=== PATIENT | male | born 1970 ===

== ENCOUNTER 2018-01-28 01:20 | Emergency (ER) | payer OTHER ==
[2018-01-28 01:21] VITALS: BMI 26.7
[2018-01-28 01:34] VITALS: RESP 18; TEMP 98.2
--- NOTE | 2018-01-28 02:42 | ED PDOC ---
Arrival/HPI - General Chief Complaint: Male Genitourinary Time Seen by Provider: 01/28/18 02:19 Historian: Patient - History of Present Illness Narrative History of Present Illness (Text): 01/28/18 02:38 Chau Martin is a 47 year old male who presents to the Emergency department complaining of rectal discomfort for the past 3 weeks. Patient reports he was told he has hemorrhoids and is scheduled for a colonoscopy. Patient denies any difficulty moving his bowels, fever, abdominal pain, rectal bleeding, rectal discharge, or any other complaints. Symptom Onset: Gradual Symptom Course: Unchanged Activities at Onset: Light Context: Home Past Medical History - Provider Review Nursing Documentation Reviewed: Yes - Infectious Disease Hx of Infectious Diseases: None - Tetanus Immunization Tetanus Immunization: Unknown - Cardiac Hx Cardiac Disorders: No Other/Comment: Father has HTN - Pulmonary Hx Respiratory Disorders: No - Neurological Hx Neurological Disorder: No - HEENT Hx HEENT Disorder: No - Renal Hx Renal Disorder: No - Endocrine/Metabolic Hx Endocrine Disorders: No - Hematological/Oncological Hx Blood Disorders: No Other/Comment: Brother had Colon CA - Integumentary Hx Dermatological Disorder: No - Musculoskeletal/Rheumatological Hx Musculoskeletal Disorders: No Hx Falls: No - Gastrointestinal Hx Gastrointestinal Disorders: No - Genitourinary/Gynecological Hx Genitourinary Disorders: No - Psychiatric Hx Psychophysiologic Disorder: No Hx Substance Use: No - Anesthesia Hx Anesthesia: No Family/Social History - Physician Review Nursing Documentation Reviewed: Yes Family/Social History: Unknown Family HX Smoking Status: Never Smoked Hx Alcohol Use: No Hx Substance Use: No Allergies/Home Meds Allergies/Adverse Reactions: Allergies No Known Allergies Allergy (Verified 01/28/18 01:35) Review of Systems - Physician Review All systems were reviewed & negative as marked: Yes - Review of Systems Constitutional: Normal. absent: Fevers Eyes: Normal ENT: Normal Respiratory: Normal. absent: SOB, Cough Cardiovascular: Normal. absent: Chest Pain Gastrointestinal: Normal. absent: Abdominal Pain, Diarrhea, Nausea, Vomiting Genitourinary Male: Other (+rectal discomfort). absent: Dysuria, Frequency, Hematuria, Urinary Output Changes Musculoskeletal: Normal. absent: Neck Pain Skin: Normal Neurological: Normal Endocrine: Normal Hemo/Lymphatic: Normal Psychiatric: Normal Physical Exam Vital Signs Reviewed: Yes Vital Signs Temp Pulse Resp BP Pulse Ox 01/28/18 02:55 62 18 112/79 98 01/28/18 01:33 98.2 F 75 18 135/92 H 100 Temperature: Afebrile Blood Pressure: Normal Pulse: Regular Respiratory Rate: Normal Appearance: Positive for: Well-Appearing, Non-Toxic, Comfortable Pain Distress: None Mental Status: Positive for: Alert and Oriented X 3 - Systems Exam Head: Present: Atraumatic, Normocephalic Pupils: Present: PERRL Extroacular Muscles: Present: EOMI Conjunctiva: Present: Normal Mouth: Present: Moist Mucous Membranes Neck: Present: Normal Range of Motion Respiratory/Chest: Present: Clear to Auscultation, Good Air Exchange. No: Respiratory Distress, Accessory Muscle Use Cardiovascular: Present: Regular Rate and Rhythm, Normal S1, S2. No: Murmurs Abdomen: No: Tenderness, Distention, Peritoneal Signs Rectal: Present: Normal Rectal Tone, Other (Guaiac negative, no perirectal swelling, no erythema). No: Fissures Back: Present: Normal Inspection Upper Extremity: Present: Normal Inspection. No: Cyanosis, Edema Lower Extremity: Present: Normal Inspection. No: Edema Neurological: Present: GCS=15, CN II-XII Intact, Speech Normal Skin: Present: Warm, Dry, Normal Color. No: Rashes Psychiatric: Present: Alert, Oriented x 3, Normal Insight, Normal Concentration Medical Decision Making ED Course and Treatment: 01/28/18 02:40 Impression: 47 year old male complaining of rectal discomfort/pressure for 3 months. Differential Diagnosis included but are not limited to: hemorrhoids Plan: -- Reassess and disposition Progress Notes: - Scribe Statement The provider has reviewed the documentation as recorded by the Chey Antoine Provider Scribe Attestation: All medical record entries made by the Scribe were at my direction and personally dictated by me. I have reviewed the chart and agree that the record accurately reflects my personal performance of the history, physical exam, medical decision making, and the department course for this patient. I have also personally directed, reviewed, and agree with the discharge instructions and disposition. Disposition/Present on Arrival - Present on Arrival Any Indicators Present on Arrival: No History of DVT/PE: No History of Uncontrolled Diabetes: No Urinary Catheter: No History of Decub. Ulcer: No History Surgical Site Infection Following: None - Disposition Have Diagnosis and Disposition been Completed?: Yes Diagnosis: Rectal pressure, Hemorrhoids Disposition: HOME/ ROUTINE Disposition Time: 02:49 Patient Plan: Discharge Condition: STABLE Additional Instructions: Use meds as prescribed/follow up with your doctor this week Prescriptions: Hydrocortisone [Anusol-HC] 25 mg RC BID PRN #20 sup PRN Reason: Hemorrhoids Referrals: Helen SAUCEDA,Colt Luz MD [Primary Care Provider] - Follow up with primary Forms: Fed[employer]id (Sinhala)
[2018-01-28 03:26] VITALS: BP 112/79; PULSE 62; O2SAT 98
== END 2018-01-28 02:55 | disposition home or self-care (01) ==
LOC: ED 01:20
DX: K64.9 Unspecified hemorrhoids (principal); K62.89 Other specified diseases of anus and rectum